=== PATIENT | female | born 2000 | race Caucasian/White ===

== ENCOUNTER 2019-09-20 17:09 | Emergency (ER) | payer OTHER ==
[2019-09-20 17:49] LABS: U PREG PATIENT POSITIVE (NEG)
[2019-09-20] MEDS ORDERED: IV RINGERS SOLUTION,LACTATED 1,000 ML IV SCH (17:52)
--- NOTE | 2019-09-20 17:52 | PHYS DOC ---
Past History Past Medical History: No Pertinent History Past Surgical History: No Surgical History Alcohol Use: None Drug Use: None Adult General Chief Complaint Chief Complaint: ABDOMINAL PAIN IN .... " I having more pain and cr amping .. I am about 8 weeks ... its my lst... I did have some spotting... 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 Patient normally follows at [facility] for care but also follows with Dr. Reece for [employer] care patient estimates she is approximately 8 weeks . No history of overseas travel. No specific history of ill contacts. Did have a history of chlamydia which was treated. Lifetime sex partners approximately 10. No recent trauma. Patient has been getting progestin vaginal suppositories for low progesterone levels/. Chest round suppositories vaginally for her low progesterone levels. Patient advises her blood type is A-. Has not received Rhogam. Review of Systems Review of Systems Constitutional: Denies fever or chills [] Eyes: Denies change in visual acuity, redness, or eye pain [] HENT: Denies nasal congestion or sore throat [] Respiratory: Denies cough or shortness of breath [] Cardiovascular: No additional information not addressed in HPI [] GI: Denies abdominal pain, nausea, vomiting, bloody stools or diarrhea [] : Denies dysuria or hematuria [] Musculoskeletal: Denies back pain or joint pain [] Integument: Denies rash or skin lesions [] Neurologic: Denies headache, focal weakness or sensory changes [] Endocrine: Denies polyuria or polydipsia [] All other systems were reviewed and found to be within normal limits, except as documented in this note. Family History Family History Noncontributory Current Medications Current Medications See nursing for home meds Allergies Allergies No known drug allergies Physical Exam Physical Exam Constitutional: Well developed, well nourished, no acute distress, non-toxic appearance. [] HENT: Normocephalic, atraumatic, bilateral external ears normal, oropharynx moist, no oral exudates, nose normal. [] Eyes: PERRLA, EOMI, conjunctiva normal, no discharge. [] Neck: Normal range of motion, no tenderness, supple, no stridor. [] Cardiovascular:Heart rate regular rhythm, no murmur [] Lungs & Thorax: Bilateral breath sounds clear to auscultation [] Abdomen: Bowel sounds normal, soft, lower pelvic tenderness, no masses, no pulsatile masses. [] Mild spotting at os. Cervical motion tenderness. Skin: Warm, dry, no erythema, no rash. [] Back: No tenderness, no CVA tenderness. [] Extremities: No tenderness, no cyanosis, no clubbing, ROM intact, no edema. [] Neurologic: Alert and oriented X 3, normal motor function, normal sensory function, no focal deficits noted. [] Psychologic: Affect anxious, judgement normal, mood normal. [] Current Patient Data Vital Signs Vital Signs Date Time Temp Pulse Resp B/P (MAP) Pulse Ox O2 Delivery O2 Flow Rate FiO2 09/20/19 17:38 97.9 74 16 99 Room Air Lab Results Laboratory Tests Test 09/20/19 17:30 Urine Test Positive (NEG) Radiology/Procedures Radiology/Procedures [][][place] [address] IMAGING REPORT Signed PATIENT: CLAU CORTEZ NACCOUNT: [id number] : 2000 LOCATION: ER AGE: 19 SEX: F EXAM STATUS: REG ER ORD. PHYSICIAN: CHAYO LINTON MD REASON: cramping PROCEDURE: OB <14 WKS OB ultrasound wasn't 14 weeks HISTORY: Cramping Sonographic examination of the was performed by transabdominal technique and multiple static images were obtained. FINDINGS: There is a single live intrauterine heartbeat is confirmed at 175 bpm. The crown-rump length of 1.8 mm corresponds with an 8 week 2 day gestational age and estimated date confinement of April 29, 2020. The LMP of 07/20/2019 corresponds with an 8 week 6 day gestational age and estimated confinement of April 25, 2020. There is a 3.5 cm cyst in the left ovary. IMPRESSION: 1. Single live intrauterine has appropriate size by ultrasound. A short-term follow-up ultrasound could be performed if clinically indicated. 2. Small cyst the left ovary. Recommend a 2-3 month follow-up ultrasound. This is not a structural survey which would be performed at 18-21 weeks gestational age. Electronically signed by: Jon Montemayor III, MD (09/20/2019 5:53 PM) [facility] DICTATED AND SIGNED BY: JON MONTEMAYOR III, MD DATE: 09/20/19 8526 CC: CHAYO LINTON MD; PCP,UNKNOWN ~ Course & Med Decision Making Course & Med Decision Making Pertinent Labs and Imaging studies reviewed. (See chart for details) Patient take only Tylenol for discomfort. Continue vitamins. Continue progesterone. Follow-up cultures. Return if any concerns. Take ultrasound results with few on follow-up primary care and OB. Follow up urine and pelvic cultures. Pelvic rest. Take Keflex 500 three times a day. Impression: 1. Abdomen Pain 2. IUP 8 w/6d - Est. Delivery Date Apr.25- to 12- 3. Threaten 4. Ovarian cysts. [] Dragon Disclaimer Dragon Disclaimer This electronic medical record was generated, in whole or in part, using a voice recognition dictation system. Departure Departure: Disposition: 01 HOME/RESIDENCE PRIOR TO ADM Condition: STABLE Referrals: PCP,UNKNOWN (PCP) Scripts Cephalexin (KEFLEX) 500 Mg Capsule 500 MG PO 1X for uti for 7 Days, BAR Prov: CHAYO LINTON MD 09/20/19 Oxycodone Hcl/Acetaminophen (PERCOCET 5-325 MG TABLET ) 1 Each Tablet 1 TAB PO PRN QID PRN for marked pain MDD 4 Tablet(s) for 30 Days, #120 TAB 0 Refills Prov: CHAYO LINTON MD 09/20/19 Dragon Disclaimer This chart was dictated in whole or in part using Voice Recognition software in a busy, high-work load, and often noisy Emergency Department environment. It may contain unintended and wholly unrecognized errors or omissions. CHAYO LINTON MD Sep 20, 2019 17:52
--- NOTE | 2019-09-20 17:56 | RAD ---
OB ultrasound wasn't 14 weeks HISTORY: Cramping Sonographic examination of the was performed by transabdominal technique and multiple static images were obtained. FINDINGS: There is a single live intrauterine heartbeat is confirmed at 175 bpm. The crown-rump length of 1.8 mm corresponds with an 8 week 2 day gestational age and estimated date confinement of April 29, 2020. The LMP of 07/20/2019 corresponds with an 8 week 6 day gestational age and estimated confinement of April 25, 2020. There is a 3.5 cm cyst in the left ovary. IMPRESSION: 1. Single live intrauterine has appropriate size by ultrasound. A short-term follow-up ultrasound could be performed if clinically indicated. 2. Small cyst the left ovary. Recommend a 2-3 month follow-up ultrasound. This is not a structural survey which would be performed at 18-21 weeks gestational age. Electronically signed by: Sameer Ha III, MD (09/20/2019 5:53 PM) [facility]
[2019-09-20] MEDS ORDERED: FAMOTIDINE 20 MG/2 ML VIAL IVP ONE (18:00)
[2019-09-20] MEDS ORDERED: ONDANSETRON PF 4 MG/2 ML VIAL. IVP ONE (18:00)
[2019-09-20 18:01] LABS: BACTERIA,URINE MANY /HPF (0-FEW); BILIRUBIN,URINE NEG (NEG); CLARITY,URINE CLOUDY; COLOR,URINE AMBER; GLUCOSE,URINE NEG (NEG); NITRITE,URINE NEG (NEG); RBC,URINE RARE /HPF (0-2); UROBILINOGEN,URINE 0.2 mg/dL (0.2 mg/dL)
[2019-09-20 18:02] LABS: SQUAMOUS EPITHELIAL CELL,UR MANY /LPF
[2019-09-20 18:18] LABS: AMPHETAMINE/METHAMPHETAMINE NEG (NEG); BARBITURATES NEG (NEG); BENZODIAZEPINES NEG (NEG); CANNABINOIDS NEG (NEG); COCAINE NEG (NEG); METHADONE NEG (NEG); OPIATES NEG (NEG); PHENCYCLIDINE NEG (NEG)
[2019-09-20] MEDS ORDERED: OXYC1TAB15 PO (19:22)
[2019-09-20] MEDS ORDERED: CEPH-264 PO (19:27)
[2019-09-20] MEDS ORDERED: CEPHALEXIN 250 MG CAPSULE PO ONE ×3 (19:30)
[2019-09-20 19:48] LABS: BASO # 0.1 x10^3/uL (0.0-0.2); BASO % 1 % (0-3); EOS % 0 % (0-3); HEMATOCRIT 42.6 % (36.0-47.0); HEMOGLOBIN 14.2 g/dL (12.0-15.5); LYMPH # 1.5 x10^3/uL (1.0-4.8); LYMPH % 16 % (24-48); MEAN CORPUSCULAR HEMOGLOBIN 32 pg (25-35); MEAN CORPUSCULAR HGB CONC 33 g/dL (31-37); MEAN CORPUSCULAR VOLUME 95 fL (79-100); MONO # 0.6 x10^3/uL (0.0-1.1); MONO % 6 % (0-9); NEUT # 7.1 x10^3uL (1.8-7.7); NEUT % 77 % (31-73); PLATELET COUNT 201 x10^3/uL (140-400); RED BLOOD COUNT 4.47 x10^6/uL (3.50-5.40); RED CELL DISTRIBUTION WIDTH 12.4 % (11.5-14.5); WHITE BLOOD COUNT 9.2 x10^3/uL (4.0-11.0)
[2019-09-20 20:10] LABS: CALCIUM 9.7 mg/dL (8.5-10.1); CREATININE 0.6 mg/dL (0.6-1.0); GFR 127.5; POTASSIUM 3.6 mmol/L (3.5-5.1)
[2019-09-20 20:18] LABS: DIRECT BILIRUBIN 0.2 mg/dL (0.0-0.2); TOTAL BILIRUBIN 0.7 mg/dL (0.2-1.0); TOTAL PROTEIN 7.7 g/dL (6.4-8.2)
[2019-09-20 21:41] VITALS: BP 100/48
== END 2019-09-20 21:59 | disposition home or self-care (01) ==
LOC: ER 17:09
DX: O20.0 Threatened abortion (principal); O34.81 Maternal care for other abnormalities of pelvic organs, first trimester; N83.202 Unspecified ovarian cyst, left side; Z3A.08 8 weeks gestation of pregnancy
CPT/HCPCS: 36415; 36430; 76801; 80048; 80076; 80307; 81001; 81025; 82150; 83690; 84443; 84702; 85025; 85610; 85730; 86592; 86850; 86900; 86901; 87086; 87491; 87591; 96374; 96375; 99285; J2405; J2791; J3490; J7120; Q0111

== ENCOUNTER 2020-05-03 16:58 | Emergency (ER) | payer OTHER ==
[~2020-05-03] VITALS: Ht 165.1 cm; Wt 68.2 kg
[~2020-05-03 16:58] MED LIST: CEPH-264 PO; OXYC1TAB15 PO
[2020-05-03] MEDS ORDERED: ONDANSETRON PF 4 MG/2 ML VIAL. IVP ONE (17:15)
[2020-05-03] MEDS ORDERED: KETOROLAC 15 MG/ML VIAL. IVP ONE (17:15)
[2020-05-03] MEDS ORDERED: IV NORMAL SALINE 1,000ML 1,000 ML IV ONE ×2 (17:15→19:00)
[2020-05-03 17:32] VITALS: BP 109/42
--- NOTE | 2020-05-03 17:52 | PHYS DOC ---
Past History Past Medical History: No Pertinent History Past Surgical History: No Surgical History Smoking: Non-smoker Alcohol Use: None Drug Use: None General Adult EDM: Chief Complaint: ABDOMINAL PAIN HPI: HPI: Patient is a 20 year old female who presents for evaluation of bleeding and lower abdominal pain. She also was having pain to her right breast area but no discharge. Patient is status post vaginal delivery on April 29 at [facility]. She states she had a recent low-grade fever and nausea as well as a mild headache. Symptoms of not relieved with ibuprofen. Her bleeding is about 1 pad every 3 hours. Patient had nausea as well. Patient is a 1 para 1. Patient had attempted breast-feeding but that was abandoned when she states she could not make much milk. Dr. 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 [facility] Review of Systems: Review of Systems: Constitutional: low grade fever no chills Eyes: Denies change in visual acuity HENT: Denies nasal congestion or sore throat Respiratory: Denies cough or shortness of breath Cardiovascular: Denies chest pain or edema GI: lower abdominal pain with nausea, no vomiting, no bloody stools or diarrhea : Denies dysuria, vaginal bleeding Musculoskeletal: low back pain or joint pain Integument: Denies rash Neurologic: mild headache but no focal weakness or sensory changes Endocrine: Denies polyuria or polydipsia Lymphatic: Denies swollen glands Psychiatric: Denies depression or anxiety Heart Score: Risk Factors: Risk Factors: DM, Current or recent (<one month) smoker, HTN, HLP, family history of CAD, obesity. Risk Scores: Score 0 - 3: 2.5% MACE over next 6 weeks - Discharge Home Score 4 - 6: 20.3% MACE over next 6 weeks - Admit for Clinical Observation Score 7 - 10: 72.7% MACE over next 6 weeks - Early Invasive Strategies Current Medications: Current Meds: Current Medications Medications (Trade) Dose Ordered Sig/Katarina Start Time Stop Time Status Last Admin Dose Admin Ceftriaxone Sodium 1 gm/ Sodium Chloride 50 ml @ 100 mls/hr 1X ONCE 05/03/20 17:30 05/03/20 17:59 Fentanyl Citrate (Fentanyl 2ml Vial) 50 mcg 1X ONCE 05/03/20 17:15 05/03/20 17:26 DC Ketorolac Tromethamine (Toradol 15mg Vial) 15 mg 1X ONCE 05/03/20 17:15 05/03/20 17:26 DC Ondansetron HCl (Zofran) 4 mg 1X ONCE 05/03/20 17:15 05/03/20 17:26 DC Sodium Chloride 1,000 ml @ 1,000 mls/hr 1X ONCE 05/03/20 17:15 05/03/20 18:14 Allergies: Allergies: Allergies Coded Allergies Type Severity Reaction Last Updated Verified No Known Drug Allergies 09/20/19 No Physical Exam: PE: Constitutional: Well developed, well nourished, moderate acute distress, non- toxic appearance. [] HENT: Normocephalic, atraumatic, bilateral external ears normal, oropharynx moist, no oral exudates, nose normal. [] Eyes: PERRL, EOMI, conjunctiva normal, no discharge. [] Neck: Normal range of motion, no tenderness, supple, no stridor. [] Cardiovascular:Heart rate regular rhythm, no murmur [] Lungs & Thorax: Bilateral breath sounds clear to auscultation [] Abdomen: Bowel sounds normal, soft, mid and lower abd tenderness, no masses. [] Skin: Warm, dry, no erythema, no rash, swelling and tenderness right breast likely mastitis. [] Back: No tenderness, no CVA tenderness. [] Extremities: No tenderness, no cyanosis, ROM intact, no edema. [] Neurologic: Alert and oriented X 3, normal motor function, normal sensory function, no focal deficits noted. [] Psychologic: Affect normal, judgement normal, mood anxious. 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 There is no obvious abscess, drainage etc. scant bleeding present [] Current Patient Data: Labs: Laboratory Tests Test 05/03/20 17:30 White Blood Count 9.0 x10^3/uL Red Blood Count 3.14 x10^6/uL Hemoglobin 8.9 g/dL Hematocrit 27.9 % Mean Corpuscular Volume 89 fL Mean Corpuscular Hemoglobin 29 pg Mean Corpuscular Hemoglobin Concent 32 g/dL Red Cell Distribution Width 16.6 % Platelet Count 262 x10^3/uL Neutrophils (%) (Auto) 74 % Lymphocytes (%) (Auto) 19 % Monocytes (%) (Auto) 6 % Eosinophils (%) (Auto) 1 % Basophils (%) (Auto) 1 % Neutrophils # (Auto) 6.7 x10^3uL Lymphocytes # (Auto) 1.7 x10^3/uL Monocytes # (Auto) 0.5 x10^3/uL Eosinophils # (Auto) 0.1 x10^3/uL Basophils # (Auto) 0.1 x10^3/uL Urine Collection Type Unknown Urine Color Yellow Urine Clarity Cloudy Urine pH 6.0 Urine Specific [place] 1.020 Urine Protein 30 mg/dl Urine Glucose (UA) Neg mg/dL Urine Ketones (Stick) >=160 mg/dL Urine Blood Large Urine Nitrite Neg Urine Bilirubin Neg Urine Urobilinogen Dipstick 1.0 mg/dL Urine Leukocyte Esterase Small Urine RBC >40 /HPF Urine WBC >40 /HPF Urine Squamous Epithelial Cells Mod /LPF Urine Transitional Epithelial Cells Occ /LPF Urine Bacteria Mod /HPF Urine Mucus Slight /LPF Sodium Level 139 mmol/L Potassium Level 3.6 mmol/L Chloride Level 103 mmol/L Carbon Dioxide Level 25 mmol/L Anion Gap 11 Blood Urea Nitrogen 4 mg/dL Creatinine 0.8 mg/dL Estimated GFR (Cockcroft-Gault) 90.5 BUN/Creatinine Ratio 5 Glucose Level 85 mg/dL Calcium Level 8.9 mg/dL Total Bilirubin 0.5 mg/dL Aspartate Amino Transf (AST/SGOT) 61 U/L Alanine Aminotransferase (ALT/SGPT) 62 U/L Alkaline Phosphatase 150 U/L Total Protein 6.9 g/dL Albumin 2.5 g/dL Albumin/Globulin Ratio 0.6 Current Medications Medications (Trade) Dose Ordered Sig/Katarina Route PRN Reason Start Time Stop Time Status Last Admin Dose Admin Sodium Chloride 1,000 ml @ 1,000 mls/hr 1X ONCE IV 05/03/20 17:15 05/03/20 18:14 DC 05/03/20 18:06 Ketorolac Tromethamine (Toradol 15mg Vial) 15 mg 1X ONCE IVP 05/03/20 17:15 05/03/20 17:26 DC 05/03/20 18:05 Fentanyl Citrate (Fentanyl 2ml Vial) 50 mcg 1X ONCE IVP 05/03/20 17:15 05/03/20 17:26 DC 05/03/20 18:06 Ondansetron HCl (Zofran) 4 mg 1X ONCE IVP 05/03/20 17:15 05/03/20 17:26 DC 05/03/20 18:05 Ceftriaxone Sodium 1 gm/ Sodium Chloride 50 ml @ 100 mls/hr 1X ONCE IV 05/03/20 17:30 05/03/20 17:59 DC 05/03/20 18:05 Sodium Chloride 50 ml @ As Directed STK-MED ONCE .ROUTE 05/03/20 17:58 05/03/20 17:58 DC Ceftriaxone Sodium (Rocephin) 1 gm STK-MED ONCE .ROUTE 05/03/20 17:58 05/03/20 17:58 DC Sodium Chloride 1,000 ml @ 1,000 mls/hr 1X ONCE IV 05/03/20 19:00 05/03/20 19:59 05/03/20 19:32 Vital Signs: Vital Signs Date Time Temp Pulse Resp B/P (MAP) Pulse Ox O2 Delivery O2 Flow Rate FiO2 05/03/20 17:32 98.4 98 26 109/42 (64 100 EKG: EKG: [] Radiology/Procedures: Radiology/Procedures: [address] [address] IMAGING REPORT Signed PATIENT: CLAU CORTEZ NACCOUNT: [id number] : 2000 LOCATION: ER AGE: 20 SEX: F EXAM STATUS: REG ER ORD. PHYSICIAN: MALA TSE DO REASON: post pain, reported recent fever PROCEDURE: US PELVIS US PELVIS DATE: 05/03/2020 5:14 PM HISTORY: post pain, reported recent fever COMPARISON: None. TECHNIQUE: Transabdominal pelvic ultrasound was performed. FINDINGS: The uterus measures 13.7 x 11.0 x 7.5 cm. The myometrium demonstrates normal echogenicity without focal lesion. Endometrium measures 20 mm in thickness. The right ovary measures 2.8 x 1.9 x 1.5 cm. The left ovary measures 3.1 x 1.7 x 1.6 cm. The bilateral ovaries are physiologic in appearance. Normal vascularity in the bilateral ovaries by color Doppler examination. No free fluid. IMPRESSION: 1. Enlarged uterus, consistent with patient's status. No evidence of retained products of conception. 2. Physiologic appearance of the ovaries. Electronically signed by: Anson Escalante MD (05/03/2020 6:32 PM) [facility] DICTATED AND SIGNED BY: ANSON ESCALANTE MD DATE: 05/03/201831 CC: MARISSA BOATENG MD; MALA TSE DO ~ [] Course & Med Decision Making: Course & Med Decision Making Pertinent Labs and Imaging studies reviewed. (See chart for details) [] Dragon Disclaimer: Dragon Disclaimer: This electronic medical record was generated, in whole or in part, using a voice recognition dictation system. [address] Boat[address], patient's ELECTRONIC SENSING EQUIPMENT ASSEMBLER from [facility] was paged to discuss case. Patient has developing some right-sided breast mastitis. Patient has some lower abdominal discomfort but her sonogram was unremarkable. CBC showed anemia but a normal white blood cell count. There is a UTI present as well. Dose of IV Rocephin given. Voice Studies Director present and I did an external exam. There is no obvious cellulitis inflammation or pus drainage from her vaginal area 1945 Dr. Burrell called back for [facility] He states he had already spoken to her earlier today and has started her on dicloxacillin to cover mastitis. He feels this will probably be adequate coverage for a low- grade bladder infection as well. Patient better and is ready for discharge. Should her symptoms worsen or persist she will return to the ER or see her ELECTRONIC SENSING EQUIPMENT ASSEMBLER this week. Departure Departure: Impression: Primary Impression: Mastitis, acute Additional Impressions: History of vaginal delivery Dehydration Urinary (tract) obstruction Disposition: HOME/RESIDENCE PRIOR TO ADM Condition: STABLE Referrals: MARISSA BOATENG MD (PCP) Patient Instructions: Dehydration, Adult, Mastitis, Urinary Tract Infection Additional Instructions: Drink plenty fluids, rest, finish your dicloxacillin already prescribed for your mastitis. It should also provide benefit for that bladder infection as well. Call and see your ELECTRONIC SENSING EQUIPMENT ASSEMBLER right away this week. Return if worsen Justification of Admission: Justification of Admission: Justification of Admission Dx: N/A MALA TSE DO May 03, 2020 17:52
[2020-05-03 17:54] LABS: BASO # 0.1 x10^3/uL (0.0-0.2); BASO % 1 % (0-3); EOS # 0.1 x10^3/uL (0.0-0.7); EOS % 1 % (0-3); HEMATOCRIT 27.9 % (36.0-47.0); HEMOGLOBIN 8.9 g/dL (12.0-15.5); LYMPH # 1.7 x10^3/uL (1.0-4.8); LYMPH % 19 % (24-48); MEAN CORPUSCULAR HEMOGLOBIN 29 pg (25-35); MEAN CORPUSCULAR HGB CONC 32 g/dL (31-37); MEAN CORPUSCULAR VOLUME 89 fL (79-100); MONO # 0.5 x10^3/uL (0.0-1.1); MONO % 6 % (0-9); NEUT # 6.7 x10^3uL (1.8-7.7); NEUT % 74 % (31-73); PLATELET COUNT 262 x10^3/uL (140-400); RED BLOOD COUNT 3.14 x10^6/uL (3.50-5.40); RED CELL DISTRIBUTION WIDTH 16.6 % (11.5-14.5)
[2020-05-03 17:57] LABS: CALCIUM 8.9 mg/dL (8.5-10.1); CREATININE 0.8 mg/dL (0.6-1.0); GFR 90.5; POTASSIUM 3.6 mmol/L (3.5-5.1)
[2020-05-03] MEDS ORDERED: cefTRIAXone SODIUM 1 GM VIAL ONE (17:58)
[2020-05-03] MEDS ORDERED: IV NORMAL SALINE 50ML 50 ML ONE (17:58)
[2020-05-03 18:00] LABS: BACTERIA,URINE MOD /HPF (0-FEW); BILIRUBIN,URINE NEG (NEG); CLARITY,URINE CLOUDY; COLOR,URINE YELLOW; GLUCOSE,URINE NEG (NEG); NITRITE,URINE NEG (NEG); RBC,URINE >40 /HPF (0-2); WBC,URINE >40 /HPF (0-4)
[2020-05-03 18:01] LABS: SQUAMOUS EPITHELIAL CELL,UR MOD /LPF
[2020-05-03 18:03] LABS: ALBUMIN 2.5 g/dL (3.4-5.0); ALBUMIN/GLOBULIN RATIO 0.6 (1.0-1.7); TOTAL BILIRUBIN 0.5 mg/dL (0.2-1.0); TOTAL PROTEIN 6.9 g/dL (6.4-8.2)
--- NOTE | 2020-05-03 18:35 | RAD ---
US PELVIS DATE: 05/03/2020 5:14 PM HISTORY: post pain, reported recent fever COMPARISON: None. TECHNIQUE: Transabdominal pelvic ultrasound was performed. FINDINGS: The uterus measures 13.7 x 11.0 x 7.5 cm. The myometrium demonstrates normal echogenicity without focal lesion. Endometrium measures 20 mm in thickness. The right ovary measures 2.8 x 1.9 x 1.5 cm. The left ovary measures 3.1 x 1.7 x 1.6 cm. The bilateral ovaries are physiologic in appearance. Normal vascularity in the bilateral ovaries by color Doppler examination. No free fluid. IMPRESSION: 1. Enlarged uterus, consistent with patient's status. No evidence of retained products of conception. 2. Physiologic appearance of the ovaries. Electronically signed by: Fortunato Escalante MD (05/03/2020 6:32 PM) [facility]
== END 2020-05-03 19:58 | disposition home or self-care (01) ==
LOC: ER 16:58
DX: O91.22 Nonpurulent mastitis associated with the puerperium (principal); N13.9 Obstructive and reflux uropathy, unspecified; E86.0 Dehydration; O72.1 Other immediate postpartum hemorrhage; Z98.890 Other specified postprocedural states
CPT/HCPCS: 36415; 76856; 80053; 81001; 85025; 87040; 87086; 96365; 96375; 99284; J0696; J1885; J2405; J3010; J7030

== ENCOUNTER 2020-10-04 15:46 | Emergency (ER) | payer OTHER ==
[~2020-10-04] VITALS: Ht 165.1 cm; Wt 60.6 kg
--- NOTE | 2020-10-04 16:06 | PHYS DOC ---
Past History Past Medical History: No Pertinent History, Anxiety, Depression Past Surgical History: No Surgical History Smoking: Non-smoker Alcohol Use: None Drug Use: None General Adult EDM: Chief Complaint: CHEST PAIN HPI: HPI: Patient is a 20-year-old female who presents with epigastric and lower abdominal pain that started 3 hours ago. Patient reports nausea and vomited once before arriving to the emergency room. Patient states that she also noticed blood in her stool but has a history of hemorrhoids. Patient denies taking anything at home for discomfort. Patient denies any health history Review of Systems: Review of Systems: Constitutional: Denies fever or chills Eyes: Denies change in visual acuity HENT: Denies nasal congestion or sore throat Respiratory: Denies cough or shortness of breath Cardiovascular: Denies chest pain or edema GI: Ports epigastric and lower abdominal pain, reports nausea, vomiting and blood in stool : Denies dysuria Musculoskeletal: Denies back pain or joint pain Integument: Denies rash Neurologic: Denies headache, focal weakness or sensory changes Endocrine: Denies polyuria or polydipsia Lymphatic: Denies swollen glands Psychiatric: Denies depression or anxiety Allergies: Allergies: Allergies Coded Allergies Type Severity Reaction Last Updated Verified No Known Drug Allergies 10/04/20 No Physical Exam: PE: Constitutional: Well developed, well nourished, no acute distress, non-toxic appearance. [] HENT: Normocephalic, atraumatic, bilateral external ears normal, oropharynx moist, no oral exudates, nose normal. [] Eyes: PERRLA, EOMI, conjunctiva normal, no discharge. [] Neck: Normal range of motion, no tenderness, supple, no stridor. [] Cardiovascular:Heart rate regular rhythm, no murmur [] Lungs & Thorax: Bilateral breath sounds clear to auscultation [] Abdomen: Bowel sounds normal, soft, no tenderness, no masses, no pulsatile masses. [] Skin: Warm, dry, no erythema, no rash. [] Back: No tenderness, no CVA tenderness. [] Extremities: No tenderness, no cyanosis, no clubbing, ROM intact, no edema. [] Neurologic: Alert and oriented X 3, normal motor function, normal sensory function, no focal deficits noted. [] Psychologic: Affect normal, judgement normal, mood normal. [] Current Patient Data: Vital Signs: Vital Signs Date Time Temp Pulse Resp B/P (MAP) Pulse Ox O2 Delivery O2 Flow Rate FiO2 10/04/20 15:54 98.7 14 16 125/59 (81) 98 EKG: EKG: Sinus Rhythm, HR 67 BPM[] Radiology/Procedures: Radiology/Procedures: []EXAM: CT Abdomen and Pelvis without IV contrast INDICATION: Reason: abdominal pain / Spl. Instructions: / History: TECHNIQUE: Multi-detector row CT images were acquired from the lung bases through the abdomen and pelvis without the use of IV contrast. Sagittal and coronal images were acquired from the transaxial data. All CT scans performed at this facility utilize dose optimization techniques as appropriate to the exam, including the following: Automated exposure control and adjustment of the mA and/or KV according to patient size (this includes techniques or standardized protocols for targeted exams where dose is indication/reason for exam). ORAL CONTRAST: None COMPARISON: None FINDINGS: The absence of IV contrast limits evaluation of soft tissue pathology. LOWER CHEST: Unremarkable LIVER: Unremarkable BILIARY SYSTEM: Gallbladder is unremarkable. Bile ducts are not dilated. PANCREAS: Unremarkable SPLEEN: Unremarkable ADRENALS: Unremarkable KIDNEYS & URETERS: Unremarkable BLADDER: Unremarkable REPRODUCTIVE ORGANS: Unremarkable GASTROINTESTINAL: Large bowel is collapsed and shows equivocal wall thickening in the right colon. The stomach, small bowel, and colon are otherwise unremarkable. The appendix is normal. MESENTERY/PERITONEUM/RETROPERITONEUM: Unremarkable VASCULAR: Unremarkable LYMPH NODES: No adenopathy OSSEOUS & SOFT TISSUES: Punctate calcifications in the pelvis are present, favored to reflect phleboliths rather than nonobstructing distal ureteral stones . IMPRESSION: 1. No specific cause for abdominal pain identified on noncontrast abdomen pelvis CT. There are no CT findings suggesting urinary tract obstruction with punctate calcifications in the pelvis. Represent phleboliths rather than nonobstructing distal ureteral stones. 2. Collapsed large bowel with apparent wall thickening on the right that is nonspecific. Correlate for any symptoms of colitis. Electronically signed by: Otilia Engle MD (10/04/2020 4:53 PM) [facility] [place]: Risk Factors: Risk Factors: DM, Current or recent (<one month) smoker, HTN, HLP, family history of CAD, obesity. Risk Scores: Score 0 - 3: 2.5% MACE over next 6 weeks - Discharge Home Score 4 - 6: 20.3% MACE over next 6 weeks - Admit for Clinical Observation Score 7 - 10: 72.7% MACE over next 6 weeks - Early Invasive Strategies Course & Med Decision Making: Course & Med Decision Making Pertinent Labs and Imaging studies reviewed. (See chart for details) []Patient is a 20-year-old female who presents with epigastric and lower abdominal pain that started 3 hours ago. Patient reports nausea and vomited once before arriving to the emergency room. Patient states that she also noticed blood in her stool but has a history of hemorrhoids. Denies dysuria, urgency or CVA tenderness. Denies fever patient denies taking anything at home for discomfort. Patient denies health history. CT negative for acute abnormalities. Labs unremarkable. UA positive for infection. 1. Gastroenteritis 2. UTI Dragon Disclaimer: Dragon Disclaimer: This electronic medical record was generated, in whole or in part, using a voice recognition dictation system. Departure Departure: Impression: Primary Impression: Urinary tract infection Qualified Codes: N30.00 - Acute cystitis without hematuria Additional Impression: Gastroenteritis Disposition: 01 DC HOME SELF CARE/HOMELESS Condition: GOOD Referrals: PCP,UNKNOWN (PCP) Patient Instructions: Urinary Tract Infection, [id number] Additional Instructions: You were seen in the emergency room today for nausea, vomiting and upper abdominal pain. Your CT was negative. Your UA did show a urinary tract infection. I have prescribed you Keflex which you will take for the next 7 days. If you have worsening symptoms or concerns you may return to the emergency room. EMERGENCY DEPARTMENT GENERAL DISCHARGE INSTRUCTIONS Thank you for coming to [facility] (ED) today and trusting us with you care. We trust that you had a positivie experience in our Emergency Department. If you wish to speak to the department management, you may call the director at [phone]. YOUR FOLLOW UP INSTRUCTIONS ARE FOLLOWS: 1. Do you have a private Doctor? If you do not have a private doctor, please ask for a resource list of physicians or clinics that may be able to assist you with follow up care. 2. The Emergency Physician has interpreted your x-rays. The X-Ray specialist will also review them. If there is a change in the findings, you will be notified in 48 hours when at all possible. 3. A lab test or culture has been done, your results will be reviewed and you will be notified if you need a change in treatment. ADDITIONAL INSTRUCTIONS AND INFORMATION: 1. Your care today has been supervised by a physician who is specially trained in emergency care. Many problems require more than one evaluation for a complete diagnosis and treatment. We recommend that you schedule your follow up appointment as recommended to ensure complete treatment of you illness or injury. If you are unable to obtain follow up care and continue to have a problem, or if your condition worsens, we recommend that you return to the ED. 2. We are not able to safely determine your condition over the phone nor are we able to give sound medical advice over the phone. For these safety reasons, if you call for medical advice we will ask you to come to the ED for further evaluation. 3. If you have any questions regarding these discharge instructions please call the ED at [phone]. SAFETY INFORMATION: In the interest of safety, wellness, and injury prevention; we encourage you to wear your sealbelt, if you smoke; quite smoking, and we encourage family to use a protective helmet for bicycling and other sporting events that present an increased risk for head injury. IF YOUR SYMPTOMS WORSEN OR NEW SYMPTOMS DEVELOP, OR YOU HAVE CONCERNS ABOUT YOUR CONDITION; OR IF YOUR CONDITION WORSENS WHILE YOU ARE WAITING FOR YOUR FOLLOW UP APPOINTMENT; EITHER CONTACT YOUR PRIMARY CARE DOCTOR, THE PHYSICIAN WHOSE NAME AND NUMBER YOU WERE GIVEN, OR RETURN TO THE ED IMMEDIATELY. Scripts Cephalexin (CEPHALEXIN) 500 Mg Tablet 500 MG PO BID for uti for 7 Days, #14 TAB Prov: RAMÓN JEFFREY APRN 10/04/20 RAMÓN JEFFREY APRN Oct 04, 2020 16:06
[2020-10-04] MEDS ORDERED: ONDANSETRON PF 4 MG/2 ML VIAL. IVP ONE (16:15)
[2020-10-04] MEDS ORDERED: LIDO:MAALOX 1:1 20 ML SINGLE DOSE. PO ONE (16:15)
[2020-10-04] MEDS ORDERED: IV NORMAL SALINE 1,000ML 1,000 ML IV ONE (16:30)
[2020-10-04 16:43] LABS: BASO % 0 % (0-3); EOS % 0 % (0-3); HEMATOCRIT 34.8 % (36.0-47.0); HEMOGLOBIN 10.9 g/dL (12.0-15.5); LYMPH # 1.6 x10^3/uL (1.0-4.8); LYMPH % 18 % (24-48); MEAN CORPUSCULAR HEMOGLOBIN 26 pg (25-35); MEAN CORPUSCULAR HGB CONC 31 g/dL (31-37); MEAN CORPUSCULAR VOLUME 82 fL (79-100); MONO # 0.5 x10^3/uL (0.0-1.1); MONO % 5 % (0-9); NEUT # 6.7 x10^3uL (1.8-7.7); NEUT % 76 % (31-73); PLATELET COUNT 282 x10^3/uL (140-400); RED BLOOD COUNT 4.22 x10^6/uL (3.50-5.40); RED CELL DISTRIBUTION WIDTH 16.5 % (11.5-14.5); WHITE BLOOD COUNT 8.8 x10^3/uL (4.0-11.0)
[2020-10-04 16:53] LABS: CALCIUM 9.3 mg/dL (8.5-10.1); CREATININE 0.8 mg/dL (0.6-1.0); GFR 90.5; POTASSIUM 3.8 mmol/L (3.5-5.1)
[2020-10-04 16:55] LABS: BARBITURATES NEG (NEG); BENZODIAZEPINES NEG (NEG); CANNABINOIDS NEG (NEG); COCAINE NEG (NEG); METHADONE NEG (NEG); OPIATES POS (NEG); PHENCYCLIDINE NEG (NEG)
--- NOTE | 2020-10-04 16:55 | RAD ---
EXAM: CT Abdomen and Pelvis without IV contrast INDICATION: Reason: abdominal pain / Spl. Instructions: / History: TECHNIQUE: Multi-detector row CT images were acquired from the lung bases through the abdomen and pel vis without the use of IV contrast. Sagittal and coronal images were acquired from the transaxial georgiana a. All CT scans performed at this facility utilize dose optimization techniques as appropriate to the exam, including the following: Automated exposure control and adjustment of the mA and/or KV accordi ng to patient size (this includes techniques or standardized protocols for targeted exams where dose is indication/reason for exam). ORAL CONTRAST: None COMPARISON: None FINDINGS: The absence of IV contrast limits evaluation of soft tissue pathology. LOWER CHEST: Unremarkable LIVER: Unremarkable BILIARY SYSTEM: Gallbladder is unremarkable. Bile ducts are not dilated. PANCREAS: Unremarkable SPLEEN: Unremarkable ADRENALS: Unremarkable KIDNEYS & URETERS: Unremarkable BLADDER: Unremarkable REPRODUCTIVE ORGANS: Unremarkable GASTROINTESTINAL: Large bowel is collapsed and shows equivocal wall thickening in the right colon. Th e stomach, small bowel, and colon are otherwise unremarkable. The appendix is normal. MESENTERY/PERITONEUM/RETROPERITONEUM: Unremarkable VASCULAR: Unremarkable LYMPH NODES: No adenopathy OSSEOUS & SOFT TISSUES: Punctate calcifications in the pelvis are present, favored to reflect phlebo liths rather than nonobstructing distal ureteral stones. IMPRESSION: 1. No specific cause for abdominal pain identified on noncontrast abdomen pelvis CT. There are no CT findings suggesting urinary tract obstruction with punctate calcifications in the pelvis. Represent p hleboliths rather than nonobstructing distal ureteral stones. 2. Collapsed large bowel with apparent wall thickening on the right that is nonspecific. Correlate fo r any symptoms of colitis. Electronically signed by: Otilia Engle MD (10/04/2020 4:53 PM) [facility] [place]
[2020-10-04 16:58] LABS: AMPHETAMINE/METHAMPHETAMINE NEG (NEG)
[2020-10-04 16:59] LABS: ALBUMIN/GLOBULIN RATIO 1.1 (1.0-1.7); DIRECT BILIRUBIN 0.1 mg/dL (0.0-0.2); TOTAL BILIRUBIN 0.4 mg/dL (0.2-1.0); TOTAL PROTEIN 7.5 g/dL (6.4-8.2)
[2020-10-04 17:01] LABS: BILIRUBIN,URINE NEG (NEG); CLARITY,URINE CLOUDY; COLOR,URINE STRAW; GLUCOSE,URINE NEG (NEG); NITRITE,URINE NEG (NEG); UROBILINOGEN,URINE 0.2 mg/dL (0.2 mg/dL)
[2020-10-04 17:02] LABS: BACTERIA,URINE MOD /HPF (0-FEW); RBC,URINE OCC /HPF (0-2); SQUAMOUS EPITHELIAL CELL,UR MOD /LPF
[2020-10-04] MEDS ORDERED: CEPH500T PO (17:14)
--- NOTE | 2020-10-04 17:43 | EKG ---
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
[2020-10-04 18:25] VITALS: BP 105/61
== END 2020-10-04 18:29 | disposition home or self-care (01) ==
LOC: ER 15:46
DX: N30.00 Acute cystitis without hematuria (principal); K52.9 Noninfective gastroenteritis and colitis, unspecified
CPT/HCPCS: 36415; 74176; 80053; 80076; 80307; 81001; 81025; 83690; 85025; 87086; 93005; 96361; 96374; 99285; J2405; J7030

== ENCOUNTER 2021-02-04 06:13 | Emergency (ER) | payer OTHER ==
[~2021-02-04] VITALS: Ht 165.1 cm; Wt 58.7 kg
[~2021-02-04 06:13] MED LIST changes: +CEPH500T PO
[2021-02-04 06:39] VITALS: BP 90/55
--- NOTE | 2021-02-04 07:16 | PHYS DOC ---
Past History Past Medical History: No Pertinent History Past Surgical History: No Surgical History Smoking: Non-smoker Alcohol Use: None Drug Use: None General Adult EDM: Chief Complaint: MULTIPLE COMPLAINTS HPI: HPI: Patient is a 20-year-old female coming in for multiple complaints. Patient states that she got her [place] vaccine 2 days ago, woke up approximately 5 to 6 hours prior to arrival with chills, head pressure and occipital pain, nausea and vomiting, back pain that she does in her spine in the thoracic and lumbar area, and chest pressure. Denies any neck stiffness or rigidity. Patient states she otherwise has been well. Says it was her first dose of the vaccine. Took Tyl enol about 4 hours prior to arrival Review of Systems: Review of Systems: All other systems within normal limits except for as noted in the HPI Current Medications: Current Meds: Current Medications Medications (Trade) Dose Ordered Sig/Katar[place] Start Time Stop Time Status Last Admin Dose Admin Ketorolac Tromethamine (Toradol Im) 60 mg 1X ONCE 02/04/21 07:00 02/04/21 07:01 UNV Ondansetron HCl (Zofran) 4 mg 1X ONCE 02/04/21 07:00 02/04/21 07:01 UNV Sodium Chloride 1,000 ml @ 1,000 mls/hr 1X ONCE 02/04/21 07:00 02/04/21 07:59 UNV Allergies: Allergies: Allergies Coded Allergies Type Severity Reaction Last Updated Verified No Known Drug Allergies 02/04/21 No Physical Exam: PE: Constitutional: Well developed, well nourished, no acute distress, non-toxic appearance. [] HENT: Normocephalic, atraumatic, bilateral external ears normal, nose normal. [] Eyes: PERRLA, conjunctiva normal, no discharge. [] Neck: No rigidity, supple, no stridor. [] Cardiovascular: Regular rate and rhythm, brisk cap refill [] Lungs & Thorax: Non labored symmetric respirations, no tachypnea or respiratory distress [] Abdomen: Soft, nondistended. Skin: Warm, dry, no erythema, no rash. [] Back: Unremarkable Extremities: No deformities, range of motion grossly intact, no lower extremity edema [] Neurologic: Alert and oriented X 3, no focal deficits noted. [] Psychologic: Affect normal, judgement normal, mood normal. [] Current Patient Data: Vital Signs: Vital Signs Date Time Temp Pulse Resp B/P (MAP) Pulse Ox O2 Delivery O2 Flow Rate FiO2 02/04/21 06:39 99.2 102 20 90/55 (67) 99 Room Air EKG: EKG: [] Sinus rhythm, slight right axis deviation, heart rate 93 bpm, no ST elevation or depression, T waves unremarkable. No ectopy, normal intervals Radiology/Procedures: Radiology/Procedures: EP interpretation chest x-ray: No cardiomegaly, no infiltrates, no osseous abnormalities, normal chest x-ray. [] Heart Score: C/O Chest Pain: N/A Risk Factors: Risk Factors: DM, Current or recent (<one month) smoker, HTN, HLP, family histo ry of CAD, obesity. Risk Scores: Score 0 - 3: 2.5% MACE over next 6 weeks - Discharge Home Score 4 - 6: 20.3% MACE over next 6 weeks - Admit for Clinical Observation Score 7 - 10: 72.7% MACE over next 6 weeks - Early Invasive Strategies Course & Med Decision Making: Course & Med Decision Making Pertinent Labs and Imaging studies reviewed. (See chart for details) Mild elevation in BNP, indeterminate clinical significance. Likely insignificant given patient's other lab work, chest x-ray, and personal medical history. Feeling better with fluids, Zofran, Toradol. Discussed return precautions and continue treatment at home. [] Dragon Disclaimer: Dragon Disclaimer: This electronic medical record was generated, in whole or in part, using a voice recognition dictation system. Departure Departure: Impression: Primary Impression: Nausea & vomiting Disposition: 01 HOME / SELF CARE / HOMELESS Condition: STABLE Referrals: PCP,UNKNOWN (PCP) Patient Instructions: Nausea and Vomiting Scripts Ondansetron (ONDANSETRON ODT) 4 Mg Tab.rapdis 1 TAB PO PRN Q6-8HRS PRN for NAUSEA for 3 Days, #10 TAB Prov: RAMIN METCALF MD 02/04/21 RAMIN METCALF MD February 04, 2021 07:16
[2021-02-04] MEDS ORDERED: ONDANSETRON PF 4 MG/2 ML VIAL. IVP ONE (07:30)
[2021-02-04] MEDS ORDERED: KETOROLAC 60 MG/2 ML VIAL. IM ONE (07:30)
[2021-02-04] MEDS ORDERED: IV NORMAL SALINE 1,000ML 1,000 ML IV ONE (07:30)
[2021-02-04] MEDS ORDERED: KETOROLAC 15 MG/ML VIAL. IVP ONE (07:30)
[2021-02-04 07:43] LABS: BASO % 0 % (0-3); EOS % 0 % (0-3); HEMATOCRIT 32.8 % (36.0-47.0); HEMOGLOBIN 10.4 g/dL (12.0-15.5); LYMPH # 0.4 x10^3/uL (1.0-4.8); LYMPH % 6 % (24-48); MEAN CORPUSCULAR HEMOGLOBIN 26 pg (25-35); MEAN CORPUSCULAR HGB CONC 32 g/dL (31-37); MEAN CORPUSCULAR VOLUME 82 fL (79-100); MONO # 0.7 x10^3/uL (0.0-1.1); MONO % 10 % (0-9); NEUT # 5.9 x10^3uL (1.8-7.7); NEUT % 84 % (31-73); PLATELET COUNT 194 x10^3/uL (140-400); RED BLOOD COUNT 3.99 x10^6/uL (3.50-5.40); RED CELL DISTRIBUTION WIDTH 17.2 % (11.5-14.5)
[2021-02-04 07:49] LABS: CALCIUM 8.6 mg/dL (8.5-10.1); CREATININE 0.9 mg/dL (0.6-1.0); POTASSIUM 3.4 mmol/L (3.5-5.1)
[2021-02-04 08:01] LABS: ALBUMIN 3.9 g/dL (3.4-5.0); ALBUMIN/GLOBULIN RATIO 1.1 (1.0-1.7); TOTAL BILIRUBIN 0.7 mg/dL (0.2-1.0); TOTAL PROTEIN 7.6 g/dL (6.4-8.2)
[2021-02-04] MEDS ORDERED: ONDA4TAB12 PO (08:30)
--- NOTE | 2021-02-04 08:30 | RAD ---
EXAM: Chest, 2 views. HISTORY: Chest pain. COMPARISON: None. FINDINGS: 2 views of the chest are obtained. There is no infiltrate, pleural effusion or pneumothorax . The heart is normal in size. IMPRESSION: No acute pulmonary finding. Electronically signed by: Christina Hsu MD (02/04/2021 8:27 AM) [id number]
[2021-02-04 09:07] LABS: BILIRUBIN,URINE SMALL (NEG); CLARITY,URINE HAZY; COLOR,URINE YELLOW; GLUCOSE,URINE NEG (NEG)
[2021-02-04 09:08] LABS: BACTERIA,URINE FEW /HPF (0-FEW); NITRITE,URINE NEG (NEG); SQUAMOUS EPITHELIAL CELL,UR MOD /LPF; UROBILINOGEN,URINE 0.2 mg/dL (0.2 mg/dL)
--- NOTE | 2021-02-04 12:35 | EKG ---
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
== END 2021-02-04 08:45 | disposition home or self-care (01) ==
LOC: ER 06:13
DX: R11.2 Nausea with vomiting, unspecified (principal); R51.9 Headache, unspecified
CPT/HCPCS: 36415; 71046; 80053; 81001; 81025; 83690; 83880; 84484; 85025; 87086; 93005; 96361; 96374; 96375; 99285; J1885; J2405; J7030

== ENCOUNTER 2021-03-12 19:23 | Emergency (ER) | payer OTHER ==
[~2021-03-12] VITALS: Ht 165.1 cm; Wt 59.4 kg
[~2021-03-12 19:23] MED LIST changes: +ONDA4TAB12 PO
--- NOTE | 2021-03-12 19:59 | PHYS DOC ---
Past History Past Medical History: No Pertinent History Past Surgical History: No Surgical History Smoking: Non-smoker Alcohol Use: None Drug Use: None General Adult HPI: HPI: ".. I ve had diarrhea and vomiting the last two days.. just now had a watery.. Patient is a 21 year old female who presents with above hx and complaints multiple episodes of nausea, vomiting and diarrhea. Patient has been ill the last 2 days. Unable to tolerate food because of nausea. Denies any recent travel. No specific ill contacts. No history of bad food intake. No specific ill contacts. No history immunosuppression.. Normally healthy. Review of Systems: Review of Systems: Constitutional: Complains of fever or chills Eyes: Denies change in visual acuity HENT: Denies nasal congestion or sore throat Respiratory: Denies cough or shortness of breath Cardiovascular: Denies chest pain or edema GI: Complains of of generalized abdominal pain, nausea, vomiting, forward watery diarrhea : Denies dysuria Musculoskeletal: Denies back pain or joint pain Integument: Denies rash Neurologic: Denies headache, focal weakness or sensory changes Endocrine: Denies polyuria or polydipsia Lymphatic: Denies swollen glands Psychiatric: Denies depression or anxiety Family History: Family History: Noncontributory presentation Current Medications: Current Meds: See nursing for home meds Allergies: Allergies: Allergies Coded Allergies Type Severity Reaction Last Updated Verified No Known Drug Allergies 02/04/21 No Physical Exam: PE: Constitutional: in acute distress, non-toxic appearance. [] HENT: Normocephalic, atraumatic, bilateral external ears normal, oropharynx dry, no oral exudates, nose normal. [] Eyes: PERRLA, EOMI, conjunctiva normal, no discharge. [] Neck: Normal range of motion, no tenderness, supple, no stridor. [] Cardiovascular:Heart rate regular rhythm, no murmur [] Lungs & Thorax: Bilateral breath sounds clear to auscultation [] Abdomen: Bowel sounds hyperactive, soft, generalized tenderness, no masses, no pulsatile masses. Frequent small amounts of watery stool. Skin: Warm, dry, no erythema, no rash. [] Back: No tenderness, no CVA tenderness. [] Extremities: No tenderness, no cyanosis, no clubbing, ROM intact, no edema. [] Neurologic: Alert and oriented X 3, normal motor function, normal sensory function, no focal deficits noted. [] Psychologic: Affect anxious, judgement normal, mood normal. [] EKG: EKG: [] Radiology/Procedures: Radiology/Procedures: [][address] [address] IMAGING REPORT Signed PATIENT: CLAU CORTEZ NACCOUNT: [id number] : 2000 LOCATION: ER AGE: 21 SEX: F EXAM STATUS: REG ER ORD. PHYSICIAN: CHAYO LINTON MD REASON: Abdomen pain, nausea, vomiting, diarrhea PROCEDURE: ACUTE ABDOMEN SERIES Three-view acute abdominal series. HISTORY: Abdominal pain, nausea and vomiting, diarrhea 3 views were taken for an acute abdominal series. Lungs are clear. Heart is normal in size. There is no pleural effusion. There is no free air on the upright view the abdomen. There are no abnormal air-fluid levels. Bowel pattern is normal. There is no bowel obstruction. There are no abnormal calcifications. IMPRESSION: 1. No acute chest disease. 2. No bowel obstruction or acute finding in the abdomen. Electronically signed by: Alex De La Fuente MD (03/12/2021 11:31 PM) [facility] DICTATED AND SIGNED BY: ALEX DE LA FUENTE MD DATE: 03/12/212329 CC: MELVIN [employer]; CHAYO LINTON MD ~MTH0 0 Heart Score: C/O Chest Pain: N/A Risk Factors: Risk Factors: DM, Current or recent (<one month) smoker, HTN, HLP, family history of CAD, obesity. Risk Scores: Score 0 - 3: 2.5% MACE over next 6 weeks - Discharge Home Score 4 - 6: 20.3% MACE over next 6 weeks - Admit for Clinical Observation Score 7 - 10: 72.7% MACE over next 6 weeks - Early Invasive Strategies Course & Med Decision Making: Course & Med Decision Making Pertinent Labs and Imaging studies reviewed. (See chart for details) Patient received 2 L of lactated Ringer's as well as Zofran and Toradol. Patient's symptoms gradually improved. Patient be discharged with clear fluid diet. Take Zofran 8 mg 4 times a day for active nausea and vomiting. Take [id number] Pepto-Bismol. Follow-up primary care. Return if any concerns. No solids or milk products for 2 days allow bowel rest push clear fluid diet. Follow up C dif. Take Flagyl 500 three times a day. Return if any concerns. Impression: 1. Acute gastroenteritis 2. Dehydration 3. Leukocytosis 13.1 4. Mild Hypokalemia 3.3 [] Grabiel Disclaimer: Grabiel Disclaimer: This electronic medical record was generated, in whole or in part, using a voice recognition dictation system. Departure Departure: Referrals: MELVIN LONG-C (PCP) Scripts Ondansetron Hcl (ZOFRAN) 4 Mg Tablet 8 MG PO QIDPRN PRN for nv, #30 TAB Prov: CHAYO LINTON MD 03/13/21 Metronidazole (FLAGYL) 500 Mg Tablet 500 MG PO TID for diarrhea for 10 Days, #30 TAB Prov: CHAYO LINTON MD 03/13/21 CHAYO LINTON MD Mar 12, 2021 19:59
[2021-03-12] MEDS ORDERED: ONDANSETRON PF 4 MG/2 ML VIAL. IVP ONE ×2 (20:15→21:15)
[2021-03-12] MEDS ORDERED: IV RINGERS SOLUTION,LACTATED 1,000 ML IV SCH (20:15)
[2021-03-12] MEDS ORDERED: FAMOTIDINE 20 MG/2 ML VIAL IVP ONE (20:15)
[2021-03-12] MEDS ORDERED: IV RINGERS SOLUTION,LACTATED 1,000 ML IV ONE (21:15)
[2021-03-12 21:17] LABS: BASO # 0.1 x10^3/uL (0.0-0.2); BASO % 1 % (0-3); EOS # 0.1 x10^3/uL (0.0-0.7); EOS % 0 % (0-3); HEMATOCRIT 39.1 % (36.0-47.0); HEMOGLOBIN 12.3 g/dL (12.0-15.5); LYMPH % 7 % (24-48); MEAN CORPUSCULAR HEMOGLOBIN 26 pg (25-35); MEAN CORPUSCULAR HGB CONC 32 g/dL (31-37); MEAN CORPUSCULAR VOLUME 84 fL (79-100); MONO # 0.7 x10^3/uL (0.0-1.1); MONO % 6 % (0-9); NEUT # 11.3 x10^3uL (1.8-7.7); NEUT % 86 % (31-73); PLATELET COUNT 288 x10^3/uL (140-400); RED BLOOD COUNT 4.67 x10^6/uL (3.50-5.40); RED CELL DISTRIBUTION WIDTH 18.2 % (11.5-14.5); WHITE BLOOD COUNT 13.1 x10^3/uL (4.0-11.0)
[2021-03-12 21:37] LABS: CALCIUM 10.2 mg/dL (8.5-10.1); CREATININE 0.9 mg/dL (0.6-1.0); DIRECT BILIRUBIN 0.2 mg/dL (0.0-0.2); GFR 78.3; POTASSIUM 3.3 mmol/L (3.5-5.1); TOTAL PROTEIN 8.9 g/dL (6.4-8.2)
[2021-03-12 21:55] LABS: INFLUENZA A PATIENT NEGATIVE (NEGATIVE); INFLUENZA B PATIENT NEGATIVE (NEGATIVE)
[2021-03-12] MEDS ORDERED: KETOROLAC 30 MG/ML VIAL. ONE (22:49)
[2021-03-12] MEDS ORDERED: KETOROLAC 30 MG/ML VIAL. IVP ONE (23:00)
--- NOTE | 2021-03-12 23:34 | RAD ---
Three-view acute abdominal series. HISTORY: Abdominal pain, nausea and vomiting, diarrhea 3 views were taken for an acute abdominal series. Lungs are clear. Heart is normal in size. There is no pleural effusion. There is no free air on the upright view the abdomen. There are no abnormal air- fluid levels. Bowel pattern is normal. There is no bowel obstruction. There are no abnormal calcifica tions. IMPRESSION: 1. No acute chest disease. 2. No bowel obstruction or acute finding in the abdomen. Electronically signed by: Alex De La Fuente MD (03/12/2021 11:31 PM) [facility]
[2021-03-13 00:22] LABS: BILIRUBIN,URINE NEG (NEG); CLARITY,URINE HAZY; COLOR,URINE YELLOW; GLUCOSE,URINE NEG (NEG)
[2021-03-13 00:23] LABS: BACTERIA,URINE FEW /HPF (0-FEW); NITRITE,URINE NEG (NEG); SQUAMOUS EPITHELIAL CELL,UR FEW /LPF; UROBILINOGEN,URINE 0.2 mg/dL (0.2 mg/dL); WBC,URINE 0 /HPF (0-4)
[2021-03-13] MEDS ORDERED: ONDA4TAB7 PO (01:55)
[2021-03-13] MEDS ORDERED: METR500T PO (01:55)
[2021-03-13 02:00] VITALS: BP 95/48
[2021-03-13] MEDS ORDERED: ONDANSETRON 4MG ODT 4TABLET STARTPACK. PO ONE ×2 (02:00→02:02)
== END 2021-03-13 02:15 | disposition home or self-care (01) ==
LOC: ER 19:23
DX: K52.9 Noninfective gastroenteritis and colitis, unspecified (principal); E86.0 Dehydration; D72.829 Elevated white blood cell count, unspecified; E87.6 Hypokalemia
CPT/HCPCS: 36415; 74022; 80048; 80076; 81001; 82150; 83690; 84702; 85025; 87040; 87493; 87804; 96361; 96374; 96375; 96376; 99285; J1885; J2405; J3490; J7120; Q0162